=== PATIENT | male | born 2000 | race Caucasian/White ===

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

== ENCOUNTER 2022-04-06 14:59 | Emergency (ER) | payer OTHER, SELFPAY ==
--- NOTE | ~2022-04-06 | XR_ITS ---
EXAMINATION: XR chest 2V DATE: 04/06/2022 15:40 INDICATION: Chest pressure TECHNIQUE: PA and lateral views of the chest were obtained. COMPARISON: None FINDINGS: The lungs are clear with no focal airspace opacities, pulmonary edema, pleural effusion or pneumothor ax. The cardiomediastinal silhouette is normal. Visualized bones and soft tissues are unremarkable. IMPRESSION: 1. No acute cardiopulmonary disease. Reviewed, dictated and finalized at location B. T CHIEF
[2022-04-06 15:25] VITALS: BP 149/96; PULSE 128; RESP 16; TEMP 36.6; O2SAT 100
--- NOTE | 2022-04-06 15:28 | ECG_ITS ---
Measurements Intervals [place] Rate: 126 P: 58 [place]: 108 QRS: 35 QRSD: 101 T: 40 QT: 285 QTc: 414 Interpretive Statements SINUS TACHYCARDIA WITH SHORT [place] INTERVAL MINIMAL Q WAVES- ANTEROLAT/HIGH LAT LEADS BORDERLINE ST-T WAVE ABNORMALITY- INFERIOR LEADS BASELINE ARTIFACT- III, AVR, AVL, AVF ABNORMAL ECG NO PREVIOUS ECG AVAILABLE FOR COMPARISON Electronically Signed On 04-06-2022 15:45:50 SALES ASSISTANT by Bassam Orellana D.O.
--- NOTE | 2022-04-06 15:35 | PC.NURSE ---
pt refusing blood draw.
[2022-04-06 21:02] VITALS: BP 161/72; PULSE 120; RESP 18; O2SAT 100
--- NOTE | 2022-04-06 22:45 | PC.NURSE ---
Pt came up to Intake desk and stated he was going to leave. Pt A&Ox4, resp even non-labored. Pt ambulatory out of ED with steady gait at this time.
== END 2022-04-06 22:45 | disposition left against medical advice (07) ==
PROVIDERS: Emergency Provider Emergency Medicine; PCP Pediatrics
DX: R07.9 Chest pain, unspecified (principal)
CPT/HCPCS: 71046; 93005; 99199

== ENCOUNTER 2024-11-03 11:36 | Emergency (ER) | payer SELFPAY ==
--- NOTE | 2024-11-03 11:38 | ED_ITS ---
HPI - General Adult General Chief complaint: Ear Stated complaint: can't hear out of left ear/left side jaw pain Time Seen by Provider: 11/03/24 12:01 Source: patient, RN notes reviewed and old records reviewed Mode of arrival: ambulatory Limitations: no limitations History of Present Illness HPI narrative: 24-year-old male presents to the [facility] with left ear pain, pressure, decreased hearing for 3 days. Denies any other symptoms sinuses, sore throat cough. Onset (ago): day(s) (3) Treatments prior to arrival: none Related Data Allergies Allergy/AdvReac Type Severity Reaction Status Date / Time No Known Allergies Allergy Verified 11/03/24 11:49 Review of Systems Review of Systems: All systems reviewed & are unremarkable except as noted in HPI and below Constitutional: Constitutional: Reports no additional constitutional complaints ENT: Reports as per HPI and Reports otalgia (Left ear) Cardiovascular: Cardiovascular: Reports no additional cardiovascular complaints, Denies chest pain and Denies dyspnea Respiratory: Respiratory: Reports no additional respiratory complaints, Denies chest congestion, Denies cough and Denies dyspnea Musculoskeletal: Musculoskeletal: Reports no additional musculoskeletal complaints Integumentary/Breasts: Skin/Breast: Reports system reviewed and no additional complaints, except as docu PMFSH Social History Social History Gender identity (if verbalized by the patient): Male Comments At the time of my signature, I reviewed and agree with the nursing past medical, surgical, social, and family history. There is no relevant family history pertinent to the patient complaint. Exam Const: General: cooperative, healthy appearing, comfortable, no acute distress, well developed, alert and well nourished Nutritional Appearance: well nourished Orientation/consciousness: patient oriented x3 Limitations: no limitations HENMT: Head: normal to inspection Ears: hearing grossly normal bilaterally, external ears normal and Abnormal EAC present erythema on the left, edema on the left and EAC tenderness on the left Face/Nose/Sinus: Normal external nose present Throat: posterior oropharynx normal, uvula midline and no uvular edema Eyes: General: appearance normal, both eyes and all related structures Alignment and Position: alignment normal Neck: Neck: normal visual inspection, full ROM, no lymphadenopathy and no meningeal signs Chest: Chest palpation & inspection: normal inspection of the chest Resp: Effort & Inspection: normal respiratory effort and able to speak in complete sentences Auscultation: clear to auscultation bilaterally, no crackles, no rales, no rhonchi and no wheezes Cardio: Rate: regular rate Skin: General skin exam: normal color and no rashes or lesions noted Neuro: General: patient oriented x3, gait normal, moves all extremities and no meningeal signs Cognition (Neuro): normal cognition Speech: normal speech Gait exam (Neuro): Normal gait present Extrem: General: normal to inspection, full ROM, capillary refill normal and normal gait Psych: Appearance: grossly normal and well kempt Mental Status: mental status grossly normal Speech and movement: Normal speech and movement present and Clear speech present Affect: normal affect Attitude: cooperative Course Course Level of Care: Express Care Visit Vital Signs Vital signs: Vital Signs Temperature 98.1 F 11/03/24 11:49 Pulse Rate 113 H 11/03/24 11:49 Respiratory Rate 18 11/03/24 11:49 Blood Pressure 163/86 H 11/03/24 11:49 Pulse Oximetry 100 11/03/24 11:49 Oxygen Delivery Room Air 11/03/24 11:49 Temperature 98.1 F 11/03/24 11:49 Pulse Rate 113 H 11/03/24 11:49 Respiratory Rate 18 11/03/24 11:49 Blood Pressure 163/86 H 11/03/24 11:49 Pulse Oximetry 100 11/03/24 11:49 Oxygen Delivery Room Air 11/03/24 11:49 Reviewed Medical Decision Making MDM Narrative Medical decision making narrative: Patient sitting comfortably in exam room. Nontoxic, vitals stable. Patient in no acute distress Patient with left ear pain x3 days reports trying to use Debrox. Patient has significant swelling to the ear canal, redness to the ear canal. Unable to visualize TM at this time due to swelling. Patient is appropriate for outpatient treatment with oral antibiotics and ear drops. Discharge instructions reviewed with patient, as well as provided in writing per nursing staff. The instructions also include specific and strict return/GO TO THE ER as well as f/u information. All questions have been answered, and the patient deny any further questions with discharge and discharge plan. Some parts of this dictation were generated by voice recognition software and may contain typographical and/or grammatical inaccuracies. Differential Diagnosis Differential Diagnosis: Otitis media, serous otitis, otitis externa Medical Records Medical records reviewed: Yes I reviewed the external patient's medical records. Vital Signs Vital Signs: Vital Signs Temperature 98.1 F 11/03/24 11:49 Pulse Rate 113 H 11/03/24 11:49 Respiratory Rate 18 11/03/24 11:49 Blood Pressure 163/86 H 11/03/24 11:49 Pulse Oximetry 100 11/03/24 11:49 Oxygen Delivery Room Air 11/03/24 11:49 Temperature 98.1 F 11/03/24 11:49 Pulse Rate 113 H 11/03/24 11:49 Respiratory Rate 18 11/03/24 11:49 Blood Pressure 163/86 H 11/03/24 11:49 Pulse Oximetry 100 11/03/24 11:49 Oxygen Delivery Room Air 11/03/24 11:49 Reviewed Lab Data Lab results reviewed: Yes I reviewed the patient's lab results. Labs: Reviewed Critical Care Time Critical Care Time Critical Care Time: No Discharge Plan Discharge Clinical Impression: Otitis externa Qualifiers: Otitis externa type: unspecified type Chronicity: acute Laterality: left Qualified Code(s): H60.502 - Unspecified acute noninfective otitis externa, left ear Patient Disposition: Home Condition: Stable Instructions: Antibiotic Form, Roldan's Ear (ED) Additional Instructions: Use ear drops and oral antibiotics as prescribed Follow-up with primary care provider this week to have your ear recheck Take Motrin 600 mg alternating with 650 mg of Tylenol every 4 hours while awake For new or worsening symptoms go directly to the emergency Patient Language: Martiniquais Prescriptions: New amoxicillin-pot clavulanate 875-125 mg tablet 1 tablet PO Q12H Qty: 20 0RF ofloxacin 0.3 % drops 5 drp LEFT EAR BID 7 Days Qty: 10 0RF Follow-up/Referrals: Flavio Oliver MD [Primary Care Provider, Pediatrics] - 2 Weeks Clinical Impression: Otitis externa Stand Alone Forms: Work/School Release IP Time of Disposition: 12:11
[2024-11-03 11:49] VITALS: BP 163/86; PULSE 113; RESP 18; TEMP 36.7; O2SAT 100
== END 2024-11-03 12:20 | disposition home or self-care (01) ==
PROVIDERS: Emergency Provider Nurse Practitioner; PCP Pediatrics
DX: H60.502 Unspecified acute noninfective otitis externa, left ear (principal)
CPT/HCPCS: 99213; G0463